=== PATIENT | female | born 1940 | race Caucasian/White ===

== ENCOUNTER 2021-12-02 10:37 | Day surgery (SDC) | payer OTHER ==
[2021-11-30 15:37] VITALS: BMI 29.9
[2021-12-02] MEDS: CIPROFLOXACIN 0.3% EYE DROPS 5 ML BOTTLE ONE ×3 (11:20→11:30)
[2021-12-02] MEDS: TROPICAMIDE 1% OPHTH SOLN 15 ML BOTTLE ONE ×3 (11:20→11:30)
[2021-12-02] MEDS: PHENYLEPHRINE 2.5% OPHTH SOLN 15 ML BOTTLE ONE ×3 (11:20→11:30)
[2021-12-02] MEDS: CYCLOPENTOLATE 2% OPHTH SOLN 2 ML BOTTLE ONE ×3 (11:20→11:30)
[2021-12-02] MEDS ORDERED: MIDAZOLAM HCL 2 MG/2 ML SINGLE DOSE VIAL ONE ×2 (12:01→12:34)
[2021-12-02] MEDS ORDERED: NEO/POLYMYX B SULF/DEXAMETH OPHTHALMIC 5ML BOTTLE ONE (12:22)
[2021-12-02 13:34] VITALS: BP 165/81; PULSE 76; TEMP 97.4
== END 2021-12-02 13:36 | disposition home or self-care (01) ==
LOC: FASU 10:37
PROVIDERS: ATTEND Ophthalmology
PROC: 08RJ3JZ Replacement of Right Lens with Synthetic Substitute, Percutaneous Approach (ICD-10-PCS; principal; 2021-12-02 12:36)
DX: H26.8 Other specified cataract (principal)
CPT/HCPCS: 66984; V2632; 82962

== ENCOUNTER 2021-12-30 10:21 | Day surgery (SDC) | payer OTHER ==
[2021-12-25 10:59] VITALS: BMI 29.9
[2021-12-30] MEDS: PHENYLEPHRINE 2.5% OPHTH SOLN 15 ML BOTTLE ONE ×3 (11:15→11:25)
[2021-12-30] MEDS: CYCLOPENTOLATE 2% OPHTH SOLN 2 ML BOTTLE ONE ×3 (11:15→11:25)
[2021-12-30] MEDS: CIPROFLOXACIN 0.3% EYE DROPS 5 ML BOTTLE ONE ×3 (11:15→11:25)
[2021-12-30] MEDS: TROPICAMIDE 1% OPHTH SOLN 15 ML BOTTLE ONE ×3 (11:15→11:25)
[2021-12-30] MEDS ORDERED: BSS (NA/CA/MG/K) BALANCED SALT SOLUTION OPHTH SOLN 15 ML BOTTLE ONE (11:22)
[2021-12-30] MEDS ORDERED: NEO/POLYMYX B SULF/DEXAMETH OPHTHALMIC 5ML BOTTLE ONE (11:23)
[2021-12-30] MEDS ORDERED: CARBACHOL 0.01% INTRA-OCULAR 1.5 ML VIAL ONE (11:23)
[2021-12-30 11:33] VITALS: PULSE 74
[2021-12-30] MEDS ORDERED: MIDAZOLAM HCL 2 MG/2 ML SINGLE DOSE VIAL ONE (12:11)
[2021-12-30 13:27] VITALS: TEMP 97
[2021-12-30 13:28] VITALS: BP 156/81
== END 2021-12-30 13:33 | disposition home or self-care (01) ==
LOC: FASU 10:21
PROVIDERS: ATTEND Ophthalmology
PROC: 08RK3JZ Replacement of Left Lens with Synthetic Substitute, Percutaneous Approach (ICD-10-PCS; principal; 2021-12-30 12:32)
DX: H26.8 Other specified cataract (principal)
CPT/HCPCS: 66984; V2632; 82962

== ENCOUNTER 2022-05-19 18:11 | Emergency (ER) | payer OTHER ==
[2022-05-19 18:41] VITALS: BP 156/86; PULSE 86; RESP 18; TEMP 98.6; BMI 28.1
== END 2022-05-19 20:18 | disposition left against medical advice (07) ==
LOC: FER 18:11
DX: M79.601 Pain in right arm (principal); W19.XXXA Unspecified fall, initial encounter
CPT/HCPCS: 71045-TC-FY; 72170-TC-FY; 73030-TC-LT-FY; 73030-TC-RT-FY; 73060-TC-RT-FY; 73070-TC-RT-FY; 73090-TC-RT-FY; 99284-25

== ENCOUNTER 2022-08-01 12:18 | Inpatient (IN) | payer OTHER ==
[2022-08-01] MEDS ORDERED: SODIUM CHLORIDE 500 ML IV STA ×2 (13:06→14:24)
[2022-08-01] MEDS ORDERED: ONDANSETRON 4 MG/2 ML VIAL IVPB ONE (13:08)
[2022-08-01] MEDS ORDERED: ONDANSETRON 4 MG/2 ML VIAL ONE (13:23)
[2022-08-01 13:49] LABS: INR 1.04 (0.83-1.09)
[2022-08-01 14:04] LABS: HEMATOCRIT 38.5 % (32.4-45.2); HEMOGLOBIN 13.4 G/dL (10.7-15.3); MCH 33.8 pg (25.7-33.7); MCHC 34.8 g/dl (32.0-36.0); MEAN CELL VOLUME 97.3 fl (80-96); MEAN PLT VOLUME 7.6 fl (7.5-11.1); PLATELET COUNT 562.5 10^3/uL (134-434); RBC 3.96 10^6/uL (3.60-5.2); RDW 13.5 % (11.6-15.6); WHITE BLOOD COUNT 16.1 10^3/uL (4.0-10.8)
[2022-08-01 14:11] LABS: ALBUMIN 3.6 g/dl (3.4-5.0); BILIRUBIN,TOTAL 0.9 mg/dl (0.2-1); CALCIUM 9.4 mg/dl (8.5-10); CREATININE 0.9 mg/dl (0.55-1.3); TOT PROT 6.7 g/dl (6.4-8.2)
[2022-08-01 14:27] LABS: PLATELET ESTIMATE SLT INCREASE
[2022-08-01 15:08] LABS: EPITHELIAL CELLS FEW /hpf
[2022-08-01] MEDS ORDERED: INSULIN REGULAR HUMAN 100 UNITS/ML *VIAL SQ ONE (15:45)
[2022-08-01] MEDS ORDERED: CEFTRIAXONE 1 GM in DEXTROSE 5%-WATER - 50 ML IVPB ONE (15:45)
[2022-08-01] MEDS ORDERED: SODIUM CHLORIDE 1,000 ML IV ONE (15:45)
[2022-08-01] MEDS ORDERED: cefTRIAXone SODIUM 1 GM VIAL ONE (16:02)
[2022-08-01] MEDS ORDERED: INSULIN REGULAR HUMAN 100 UNITS/ML *VIAL ONE (16:02)
[2022-08-01] MEDS: CEFTRIAXONE 1 GM in DEXTROSE 5%-WATER - 50 ML IVPB SCH (16:35)
[2022-08-01 17:11] LABS: VENOUS BASE EXCESS -3.1 mmol/L (-2-2); VENOUS O2 SATURATION 79.6 % (70-80); VENOUS PH 7.381 (7.310-7.410)
[2022-08-01 18:50] VITALS: BMI 22.1
[2022-08-01] MEDS: CARVEDILOL 25 MG TABLET (FP) PO SCH (21:26)
[2022-08-01] MEDS: amLODIPine BESYLATE 10 MG TABLET (FP) PO SCH (21:26)
[2022-08-01] MEDS: ATORVASTATIN CA 10 MG TABLET (FP) PO SCH (21:26)
[2022-08-01] MEDS: EZETIMIBE 10 MG TABLET (FP) PO SCH (21:27)
[2022-08-01] MEDS: INSULIN SLIDING SCALE (NOVOLOG) 1 VIAL SQ SCH (21:31)
[2022-08-01] MEDS ORDERED: POTASSIUM CHLORIDE TABS 20 MEQ TABLET.ER (FP) PO ONE (23:26)
[2022-08-02] MEDS: ACETAMINOPHEN 325 MG TABLET (FP) PO PRN ×3 (04:51→23:32)
[2022-08-02] MEDS: INSULIN SLIDING SCALE (NOVOLOG) 1 VIAL SQ SCH ×4 (06:32→22:25)
[2022-08-02] MEDS: CARVEDILOL 25 MG TABLET (FP) PO SCH ×2 (09:25→21:16)
[2022-08-02] MEDS: ASPIRIN COATED 81 MG TABLET.EC PO SCH (09:25)
[2022-08-02] MEDS: CEFTRIAXONE 1 GM in DEXTROSE 5%-WATER - 50 ML IVPB SCH (09:25)
[2022-08-02 09:35] LABS: CALCIUM 8.7 mg/dl (8.5-10); CREATININE 0.8 mg/dl (0.55-1.3)
[2022-08-02 11:23] LABS: EOS % 4.8 % (0-4.5); HEMATOCRIT 39.2 % (32.4-45.2); HEMOGLOBIN 12.9 GM/dL (10.7-15.3); LYMPH % 36.5 % (8-40); MCHC 32.8 g/dl (32.0-36.0); MEAN CELL VOLUME 97.6 fl (80-96); MEAN PLT VOLUME 7.7 fl (7.5-11.1); MONO % 10.4 % (3.8-10.2); NEUT % 47.3 % (42.8-82.8); PLATELET COUNT 425 10^3/uL (134-434); RBC 4.02 M/mm3 (3.60-5.2); RDW 13.7 % (11.6-15.6); WHITE BLOOD COUNT 10.2 K/mm3 (4.0-10.0)
[2022-08-02] MEDS ORDERED: METOCLOPRAMIDE HCL INJECTION 10 MG/2 ML VIAL IVPUSH PRN (13:17)
[2022-08-02] MEDS: PANTOPRAZOLE SODIUM 40 MG VIAL IVPUSH SCH (13:50)
[2022-08-02] MEDS: INSULIN (LEVEMIR) 100 UNITS/ML UNITS SQ SCH ×2 (15:05→22:25)
[2022-08-02] MEDS: ATORVASTATIN CA 10 MG TABLET (FP) PO SCH (21:16)
[2022-08-02] MEDS: EZETIMIBE 10 MG TABLET (FP) PO SCH (21:16)
[2022-08-02] MEDS: amLODIPine BESYLATE 10 MG TABLET (FP) PO SCH (21:16)
[2022-08-02 23:53] VITALS: RESP 17
[2022-08-03] MEDS: INSULIN SLIDING SCALE (NOVOLOG) 1 VIAL SQ SCH ×2 (06:19→11:58)
[2022-08-03] MEDS: ACETAMINOPHEN 325 MG TABLET (FP) PO PRN (07:32)
[2022-08-03] MEDS: INSULIN (LEVEMIR) 100 UNITS/ML UNITS SQ SCH (09:43)
[2022-08-03] MEDS: PANTOPRAZOLE SODIUM 40 MG VIAL IVPUSH SCH (09:43)
[2022-08-03] MEDS: ASPIRIN COATED 81 MG TABLET.EC PO SCH (09:43)
[2022-08-03] MEDS: CARVEDILOL 25 MG TABLET (FP) PO SCH (09:43)
[2022-08-03] MEDS: CEFTRIAXONE 1 GM in DEXTROSE 5%-WATER - 50 ML IVPB SCH (09:44)
[2022-08-03 11:01] VITALS: BP 157/75; PULSE 75; TEMP 98.4
== END 2022-08-03 13:29 | disposition home or self-care (01) | DRG 638 ==
LOC: FER 12:18 → FM/S 15:47
DX: E11.10 Type 2 diabetes mellitus with ketoacidosis without coma (principal); E87.1 Hypo-osmolality and hyponatremia; N39.0 Urinary tract infection, site not specified; R11.10 Vomiting, unspecified; M48.00 Spinal stenosis, site unspecified; R53.1 Weakness; B96.20 Unspecified Escherichia coli [E. coli] as the cause of diseases classified elsewhere; I12.9 Hypertensive chronic kidney disease with stage 1 through stage 4 chronic kidney disease, or unspecified chronic kidney disease; E11.22 Type 2 diabetes mellitus with diabetic chronic kidney disease; N18.9 Chronic kidney disease, unspecified; D64.9 Anemia, unspecified
CPT/HCPCS: 0241U-QW; 36415; 71045-TC-FY; 80048; 80053; 81003; 81015; 82010; 82436; 82803; 82962; 83036; 83605; 83690; 83930; 84133; 84300; 84484; 85025; 85027; 85610; 87040; 87086; 87186; 93005; 97116-GP; 97162-GP; 99285-25

== ENCOUNTER 2022-11-29 19:38 | Inpatient (IN) | payer OTHER ==
[2022-11-29 19:51] VITALS: BMI 26.6
[2022-11-29] MEDS ORDERED: SODIUM CHLORIDE 1,000 ML IV ONE (20:11)
[2022-11-29 20:31] LABS: HEMATOCRIT 32.1 % (32.4-45.2); MCH 34.4 pg (25.7-33.7); MCHC 34.3 g/dl (32.0-36.0); MEAN CELL VOLUME 100.2 fl (80-96); MEAN PLT VOLUME 7.3 fl (7.5-11.1); RDW 14.3 % (11.6-15.6); WHITE BLOOD COUNT 12.9 10^3/uL (4.0-10.8)
[2022-11-29 20:36] LABS: BILIRUBIN,TOTAL 0.5 mg/dl (0.2-1); CALCIUM 8.5 mg/dl (8.5-10); CREATININE 0.9 mg/dl (0.55-1.3); POTASSIUM 3.5 mmol/L (3.5-5.1); TOT PROT 5.9 g/dl (6.4-8.2)
[2022-11-29] MEDS ORDERED: ONDANSETRON 4 MG/2 ML VIAL IVPUSH ONE (22:08)
[2022-11-29] MEDS ORDERED: ONDANSETRON 4 MG/2 ML VIAL ONE (22:10)
[2022-11-30] MEDS ORDERED: ACETAMINOPHEN/CAFFEINE/BUTALBITAL 1 TAB PO PRN (06:05)
[2022-11-30 09:00] LABS: HEMATOCRIT 31.3 % (32.4-45.2); HEMOGLOBIN 10.4 G/dL (10.7-15.3); MCH 33.1 pg (25.7-33.7); MCHC 33.1 g/dl (32.0-36.0); MEAN CELL VOLUME 99.9 fl (80-96); MEAN PLT VOLUME 7.3 fl (7.5-11.1); PLATELET COUNT 447.1 10^3/uL (134-434); RBC 3.13 10^6/uL (3.60-5.2); RDW 13.9 % (11.6-15.6); WHITE BLOOD COUNT 11.1 10^3/uL (4.0-10.8)
[2022-11-30] MEDS: INSULIN SLIDING SCALE (NOVOLOG) 1 VIAL SQ SCH ×4 (09:00→21:13)
[2022-11-30 09:18] LABS: CALCIUM 8.2 mg/dl (8.5-10); CREATININE 0.8 mg/dl (0.55-1.3); MAGNESIUM 1.5 mg/dL (1.8-2.4); PHOSPHOROUS 3.5 mg/dl (2.5-4.9); POTASSIUM 3.5 mmol/L (3.5-5.1)
[2022-11-30] MEDS: EZETIMIBE 10 MG TABLET (FP) PO SCH (10:44)
[2022-11-30] MEDS: ACETAMINOPHEN/CAFFEINE/BUTALBITAL 1 TAB PO PRN (10:44)
[2022-11-30] MEDS: HEPARIN NA (PORCINE) 5,000 UNITS/ML 1ML VIAL SQ SCH ×2 (10:45→21:13)
[2022-11-30] MEDS: ASPIRIN COATED 81 MG TABLET.EC PO SCH (10:45)
[2022-11-30] MEDS: predniSONE 10 MG TABLET (UD) PO SCH (10:45)
[2022-11-30] MEDS ORDERED: POTASSIUM CHLORIDE ORAL LIQUID 20 MEQ/15 ML PO ONE (12:07)
[2022-11-30] MEDS ORDERED: MAGNESIUM SULF 50% (8.12 MEQ/2 ML-1 GM VIAL) IVPB ONE (12:07)
[2022-11-30] MEDS ORDERED: MAGNESIUM SULFATE IN WATER 2 GM/50 ML IVPB IVPB ONE (12:15)
[2022-11-30 14:29] LABS: INR 0.96 (0.83-1.09)
[2022-11-30 14:31] LABS: ACTIVATED PTT 34.2 SECONDS (25.2-36.5)
[2022-11-30 14:46] LABS: CREATININE 1.1 mg/dl (0.55-1.3); POTASSIUM 3.6 mmol/L (3.5-5.1)
[2022-11-30] MEDS ORDERED: SODIUM CHLORIDE 1,000 ML IV SCH (15:00)
[2022-11-30] MEDS: amLODIPine BESYLATE 10 MG TABLET (FP) PO SCH (21:06)
[2022-11-30] MEDS: CARVEDILOL PHOSPHATE CR 20 MG CAPSULE PO SCH (21:06)
[2022-11-30] MEDS: ATORVASTATIN CA 10 MG TABLET (FP) PO SCH (21:06)
[2022-11-30 21:37] LABS: CREATININE 0.8 mg/dl (0.55-1.3)
[2022-11-30] MEDS ORDERED: ACETAMINOPHEN 1000 MG/100 ML BAG IVPB ONE (21:41)
[2022-11-30] MEDS: MAG HYDROX/AL HYDROX/SIMETH 30 ML UNIT-DOSE CUP PO ONE ×2 (21:59→22:04)
[2022-11-30] MEDS ORDERED: CARVEDILOL PHOSPHATE PO SCH (22:00)
[2022-12-01] MEDS: ACETAMINOPHEN/CAFFEINE/BUTALBITAL 1 TAB PO PRN (06:11)
[2022-12-01] MEDS: INSULIN SLIDING SCALE (NOVOLOG) 1 VIAL SQ SCH ×4 (06:12→21:33)
[2022-12-01 08:26] LABS: CALCIUM 8.5 mg/dl (8.5-10); CREATININE 0.9 mg/dl (0.55-1.3); MAGNESIUM 1.7 mg/dL (1.8-2.4); PHOSPHOROUS 3.1 mg/dl (2.5-4.9); POTASSIUM 3.8 mmol/L (3.5-5.1)
[2022-12-01 09:23] LABS: BASO % 1.7 % (0-2.0); EOS % 7.9 % (0-4.5); HEMATOCRIT 27.4 % (32.4-45.2); HEMOGLOBIN 9.7 GM/dL (10.7-15.3); LYMPH % 37.6 % (8-40); MCH 33.5 pg (25.7-33.7); MCHC 35.3 g/dl (32.0-36.0); MEAN CELL VOLUME 94.9 fl (80-96); NEUT % 40.8 % (42.8-82.8); PLATELET COUNT 439 10^3/uL (134-434); RBC 2.88 M/mm3 (3.60-5.2); RDW 14.5 % (11.6-15.6); WHITE BLOOD COUNT 8.2 K/mm3 (4.0-10.0)
[2022-12-01] MEDS ORDERED: SODIUM CHLORIDE 1,000 ML IV SCH (10:08)
[2022-12-01] MEDS: predniSONE 10 MG TABLET (UD) PO SCH (10:24)
[2022-12-01] MEDS: ASPIRIN COATED 81 MG TABLET.EC PO SCH (10:24)
[2022-12-01] MEDS: EZETIMIBE 10 MG TABLET (FP) PO SCH (10:24)
[2022-12-01] MEDS: HEPARIN NA (PORCINE) 5,000 UNITS/ML 1ML VIAL SQ SCH ×2 (10:26→21:41)
[2022-12-01] MEDS: CARVEDILOL PHOSPHATE CR 20 MG CAPSULE PO SCH ×2 (21:07→21:10)
[2022-12-01] MEDS: amLODIPine BESYLATE 10 MG TABLET (FP) PO SCH ×2 (21:08→21:10)
[2022-12-01] MEDS: ATORVASTATIN CA 10 MG TABLET (FP) PO SCH (21:08)
[2022-12-01 22:10] VITALS: RESP 18
[2022-12-02] MEDS: ACETAMINOPHEN/CAFFEINE/BUTALBITAL 1 TAB PO PRN (01:01)
[2022-12-02] MEDS: INSULIN SLIDING SCALE (NOVOLOG) 1 VIAL SQ SCH ×2 (06:02→06:03)
[2022-12-02 08:43] LABS: ALBUMIN 2.7 g/dl (3.4-5.0); BILIRUBIN,TOTAL 0.4 mg/dl (0.2-1); CALCIUM 8.5 mg/dl (8.5-10); CREATININE 0.9 mg/dl (0.55-1.3); POTASSIUM 3.5 mmol/L (3.5-5.1); TOT PROT 5.2 g/dl (6.4-8.2)
[2022-12-02] MEDS: predniSONE 10 MG TABLET (UD) PO SCH (09:28)
[2022-12-02] MEDS: ASPIRIN COATED 81 MG TABLET.EC PO SCH (09:28)
[2022-12-02] MEDS: EZETIMIBE 10 MG TABLET (FP) PO SCH (09:28)
[2022-12-02] MEDS: HEPARIN NA (PORCINE) 5,000 UNITS/ML 1ML VIAL SQ SCH (09:29)
[2022-12-02 09:58] LABS: BASO % 0.9 % (0-2.0); EOS % 7.2 % (0-4.5); HEMATOCRIT 26.7 % (32.4-45.2); HEMOGLOBIN 9.3 GM/dL (10.7-15.3); LYMPH % 37.2 % (8-40); MCH 33.5 pg (25.7-33.7); MEAN CELL VOLUME 95.6 fl (80-96); MEAN PLT VOLUME 7.2 fl (7.5-11.1); MONO % 10.8 % (3.8-10.2); NEUT % 43.9 % (42.8-82.8); PLATELET COUNT 438 10^3/uL (134-434); RBC 2.79 M/mm3 (3.60-5.2); RDW 14.2 % (11.6-15.6); WHITE BLOOD COUNT 9.5 K/mm3 (4.0-10.0)
[2022-12-02 14:15] VITALS: BP 112/52; PULSE 68; TEMP 98.6
== END 2022-12-02 15:03 | disposition home or self-care (01) | DRG 641 ==
LOC: FER 19:38 → FM/S 21:46
PROVIDERS: ADMIT Internal Medicine; ATTEND Internal Medicine
DX: E87.1 Hypo-osmolality and hyponatremia (principal); I10 Essential (primary) hypertension; E11.65 Type 2 diabetes mellitus with hyperglycemia; E88.09 Other disorders of plasma-protein metabolism, not elsewhere classified; R51.9 Headache, unspecified; Z79.4 Long term (current) use of insulin; R19.7 Diarrhea, unspecified
CPT/HCPCS: 0241U-QW; 36415; 71045-TC-FY; 80048; 80053; 81003; 81015; 82436; 82550; 82570; 82962; 83605; 83735; 83935; 84100; 84133; 84295; 84300; 84484; 85025; 85027; 85610; 85730; 87086; 87186; 93005; 97116-GP; 97161-GP; 99285-25; J1644